=== PATIENT | male | born 1945 | race Caucasian/White ===

== ENCOUNTER 2017-09-13 06:13 | Inpatient (IN) | payer MEDICARE, BC ==
[~2017-09-13] VITALS: Ht 170.2 cm; Wt 70.6 kg
[~2017-09-13 06:13] MED LIST: ECASA81 PO; LIDOCAINE 1%/EPINEPHrine 1:100,000 SOLN 30 ML VIAL ONE; LISI-519 PO; RANI150T PO
[2017-09-13] MEDS ORDERED: SODIUM CHLORID 0.9% 500 ML IV PRN (06:45)
[2017-09-13] MEDS ORDERED: METOPROLOL TARTRATE 25 MG TAB PO PRN (06:45)
[2017-09-13] MEDS ORDERED: POVIDONE IODINE 5% (ANTISEPSIS KIT) 4 APPLICATIONS EACH NARE PRN (06:45)
[2017-09-13] MEDS ORDERED: LACTATED RINGER'S 1000 ML IV PRN (06:45)
[2017-09-13] MEDS ORDERED: CHLORHEXIDINE GLUCONATE 2 % 1 PACK (2 CLOTHS) TOPICAL PRN (06:45)
[2017-09-13] MEDS ORDERED: ceFAZolin 2 GM PREMIX 50 ML IV SCH (06:45)
[2017-09-13] MEDS ORDERED: BUPIVACAINE/EPINEPHRINE 0.5% PF 30 ML VIAL ONE (07:15)
[2017-09-13 07:46] LABS: BASOPHIL % 0.8 % (0.0-2.0); EOSINOPHIL # 0.1 TH/MM3 (0-0.4); EOSINOPHIL % 2.4 % (0.0-4.0); HEMATOCRIT 38.5 % (39.0-51.0); HEMOGLOBIN 13.4 GM/DL (13.0-17.0); LYMPHOCYTE # 1.3 TH/MM3 (1.0-4.8); MEAN CELL VOLUME 84.7 FL (80.0-100.0); MEAN CORPUSCULAR HEMOGLOBIN 29.4 PG (27.0-34.0); MEAN CORPUSCULAR HGB CONC 34.7 % (32.0-36.0); MEAN PLATELET VOLUME 7.6 FL (7.0-11.0); MONO % 9.2 % (0.0-8.0); MONOCYTE # 0.5 TH/MM3 (0-0.9); NEUT % 60.6 % (16.0-70.0); PLATELET COUNT 202 TH/MM3 (150-450); RED BLOOD COUNT 4.54 MIL/MM3 (4.50-5.90); RED CELL DISTRIBUTION WIDTH 14.1 % (11.6-17.2)
[2017-09-13] MEDS ORDERED: ACETAMINOPHEN 1000 MG/100 ML 100 ML IV ONE (07:49)
[2017-09-13] MEDS ORDERED: BUPIVACAINE LIPOSOME PF 1.3% 20 ML VIAL ONE (09:31)
[2017-09-13] MEDS ORDERED: SODIUM CHLORIDE 0.9% 20 ML VIAL ONE (09:32)
[2017-09-13] MEDS ORDERED: KETOROLAC TROMETHAMINE 30 MG/ML (IVP) VIAL IVP PRN (11:00)
[2017-09-13] MEDS ORDERED: NALOXONE HCL 0.4 MG/ML AMP IV PUSH PRN (11:00)
[2017-09-13] MEDS ORDERED: Post-op Orders (for Pharmacy) XX ONE (11:00)
[2017-09-13] MEDS ORDERED: ACETAMINOPHEN/HYDROcodone 325 MG/5 MG TAB PO PRN ×2 (11:00)
[2017-09-13] MEDS ORDERED: diphenhydrAMINE HCL 25 MG CAP PO PRN (11:00)
[2017-09-13] MEDS ORDERED: ONDANSETRON HCL 4 MG/2 ML VIAL IV PUSH PRN (11:00)
[2017-09-13] MEDS ORDERED: DO NOT ADM ANY ANTICOAGULANT DRUGS PRN (11:05)
[2017-09-13] MEDS ORDERED: *morphine SULFATE 4 MG/ML PERIprocedure ONLY ONE ×3 (11:13→11:41)
[2017-09-13] MEDS ORDERED: MIDAZOLAM HCL 2 MG/2 ML VIAL ONE (11:17)
[2017-09-13] MEDS: D5-NS + KCL 20 MEQ INJ 1,000 ML IV SCH ×2 (11:35→20:41)
[2017-09-13] MEDS: MORPHINE SULFATE 30 MG/30 ML PCA IV SCH (11:35)
[2017-09-13] MEDS ORDERED: HYDROmorphone HCL PF 2 MG/ML VIAL ONE (11:59)
[2017-09-13] MEDS ORDERED: PROPOFOL 200 MG/20 ML AMP IV ONE (12:00)
[2017-09-13] MEDS ORDERED: ePHEDrine/NS 25 MG/5 ML SYRINGE IV ONE (12:00)
[2017-09-13] MEDS ORDERED: NORMOSOL R INJ 2,000 ML IV ONE (12:00)
[2017-09-13] MEDS ORDERED: KETOROLAC TROMETHAMINE 30 MG/ML (IVP) VIAL IV PUSH ONE (12:00)
[2017-09-13] MEDS ORDERED: GLYCOPYRROLATE 1 MG/5 ML SYRINGE IV PUSH ONE (12:00)
[2017-09-13] MEDS ORDERED: NEOSTIGMINE 5 MG/5 ML SYRINGE IV PUSH ONE (12:00)
[2017-09-13] MEDS ORDERED: ROCURONIUM INJ 50 MG/5 ML SYRINGE IV PUSH ONE (12:00)
[2017-09-13] MEDS ORDERED: LIDOCAINE HCL 1% PF 5 ML SYRINGE OTHER ONE (12:00)
[2017-09-13] MEDS ORDERED: DEXAMETHASONE SOD PHOS 4 MG/ML VIAL IV ONE (12:00)
[2017-09-13] MEDS ORDERED: ONDANSETRON HCL 4 MG/2 ML VIAL IV ONE (12:00)
[2017-09-13] MEDS: PCA - TOTAL MG MORPHINE DELIVERED PER SHIFT SCH ×2 (14:00→20:40)
--- NOTE | 2017-09-13 14:46 | EKG ---
Date Performed: 09/13/2017 Time Performed: 06:49:37 PTAGE: 72 years EKG: Sinus rhythm NORMAL ECG PREVIOUS TRACING : 09/12/1999 09.15 Since the prior tracing, there has been no significant leo DOCTOR: Adeel Damian Interpretating Date/Time 09/13/2017 14:38:02
[2017-09-13 15:00] VITALS: O2SAT 98
[2017-09-13 16:00] VITALS: BP 109/58; PULSE 77; RESP 19; TEMP 97.7; O2SAT 98
[2017-09-13 20:00] VITALS: BP 116/61; PULSE 64; RESP 20; O2SAT 98
[2017-09-13 20:09] VITALS: O2SAT 98
[2017-09-13] MEDS: DOCUSATE SODIUM 100 MG CAP PO SCH (20:40)
[2017-09-13] MEDS: FAMOTIDINE 20 MG TAB PO SCH (20:40)
[2017-09-14] VITALS: BP 114/58; PULSE 89; RESP 18; TEMP 96.1; O2SAT 95
[2017-09-14] MEDS: D5-NS + KCL 20 MEQ INJ 1,000 ML IV SCH ×3 (03:35→20:37)
[2017-09-14] MEDS: MORPHINE SULFATE 30 MG/30 ML PCA IV SCH ×2 (03:38→20:32)
[2017-09-14 04:00] VITALS: BP 123/65; PULSE 69; RESP 20; TEMP 96.7; O2SAT 96
[2017-09-14] MEDS: PCA - TOTAL MG MORPHINE DELIVERED PER SHIFT SCH ×3 (06:00→20:35)
[2017-09-14 08:00] VITALS: BP 123/65; PULSE 71; RESP 19; TEMP 97.8; O2SAT 95
[2017-09-14] MEDS: LISINOPRIL 5 MG TAB PO SCH (08:05)
[2017-09-14] MEDS: DOCUSATE SODIUM 100 MG CAP PO SCH ×2 (08:06→20:35)
[2017-09-14] MEDS: ASPIRIN EC 81 MG TABEC PO SCH (08:06)
[2017-09-14] MEDS: FAMOTIDINE 20 MG TAB PO SCH ×2 (08:06→20:35)
--- NOTE | 2017-09-14 10:05 | MP ---
cc: BRENNAN CRISOSTOMO M.D. 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 PROCEDURE PERFORMED 1. Exploratory laparotomy with lysis of adhesions. 2. Abdominal wall reconstruction with component separation and ventral incisional hernia repair with mesh. 3. Removal of foreign body, previous mesh. SURGEON Brennan Crisostomo MD ANESTHESIA General endotracheal TELEGRAPH DISPATCHER Gustavo Jaime MD ANESTHESIA General endotracheal COMPLICATIONS None INDICATIONS FOR THE PROCEDURE Mr. Monterroso is a very pleasant 72-year-old patient who underwent exploratory laparotomy, colostomy and subsequent colostomy takedown by Dr. Curry. The patient developed multiple ventral incisional hernias. Dr. Curry repaired his upper midline incisional hernia with the mesh. He then developed additional hernias below this, as well as a stomal hernia in the left lower quadrant. He sought second opinion. The patient was seen and evaluated. Because he had multiple midline incisional hernias as well as stomal hernia in the left lower quadrant, I recommended an open abdominal wall reconstruction with component separation and mesh repair. The patient was agreeable. DETAILS OF THE PROCEDURE The patient was identified, brought to the operating room, placed supine on the operating room table. After adequate general endotracheal anesthesia was achieved, the abdomen was prepped and draped in standard surgical fashion. The previous incision was anesthetized. The previous incision was widely excised using sharp and electrocautery dissection. Dissection proceeded down into the subcutaneous tissue to the a hernia defect which was opened. A finger was then placed in the abdominal cavity without difficulty. The entire midline incision was then opened. The patient was found have multiple ventral incisional hernias with basically [place] cheese of the abdominal wall. This was opened widely along the patient's previous incision. The omental adhesions were taken down off of the incision. The transverse colon was adherent to the patient's previous mesh which was placed in the upper midline. This was carefully taken down with sharp dissection. Previous mesh was then excised with electrocautery Bovie and discarded. The omentum was freed up completely from the abdominal wall circumferentially. Small bowel was briefly inspected. There were no abnormalities and no obvious adhesions. Attention was now directed to the abdominal wall reconstruction. Rectus muscles were identified bilaterally. The anterior and posterior fascia was then . Peritoneum and posterior fascia was dissected back off of the rectus muscle out as far laterally as the transversus abdominis. This was accomplished on both sides. Once the posterior fascia and peritoneum was mobilized completely, it was closed primarily with a #1 PDS continuous running fashion. Previous ostomy site was identified. The posterior fascia was then closed with 3-0 Vicryl suture. We had complete coverage of the entire small bowel. Prior to closure, we had mobilized the omentum, placed it over the small bowel and placed Seprafilm on top of it. Once the first layer was closed, attention was directed to the mesh repair. A piece of polypropylene mesh was brought in a measured out to be about 15 x 30 cm. This was cut to fashion the entire abdominal wall. The mesh was secured superiorly along the posterior fascia and inferiorly along the posterior fascia using a 2-0 PDS suture. Once we did this, the mass was then circumferentially sewn down to the posterior fascia and peritoneum using the 2-0 PDS suture. Mesh was under no significant tension, laid flat and smooth with broad coverage of the posterior fascia in all directions. Attention was now directed to the anterior repair. The anterior fascia was then mobilized off the rectus muscle in order to achieve a primary closure. Primary closure was again accomplished using a #1 PDS in continuous running fashion from above and below. The wound was copiously irrigated with normal saline solution prior to closure. The midline and subcutaneous fat was then reapproximated with a 3-0 Vicryl suture. Skin was closed with a 4-0 Monocryl. Sterile dressings were applied. The patient was awakened and brought to recovery in stable condition. MD GREG Jara/MYRON /10:57 AM /9:48 AM
--- NOTE | 2017-09-14 11:39 | HHI.PR ---
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
[2017-09-14 12:00] VITALS: BP 125/63; PULSE 80; RESP 19; TEMP 97.4; O2SAT 95
[2017-09-14 16:00] VITALS: BP 119/62; PULSE 64; RESP 19; TEMP 97.1; O2SAT 95
[2017-09-14 20:00] VITALS: BP 127/60; PULSE 91; RESP 21; TEMP 99.2; O2SAT 92
[2017-09-15] VITALS (8 sets, daily range): BP systolic 118–145; BP diastolic 58–66; PULSE 82–96; RESP 17–20; TEMP 97.3–100.5; O2SAT 90–94
[2017-09-15] MEDS: PCA - TOTAL MG MORPHINE DELIVERED PER SHIFT SCH ×4 (06:00→21:44)
[2017-09-15] MEDS: LISINOPRIL 5 MG TAB PO SCH (10:24)
[2017-09-15] MEDS: DOCUSATE SODIUM 100 MG CAP PO SCH (10:24)
[2017-09-15] MEDS: ASPIRIN EC 81 MG TABEC PO SCH (10:24)
[2017-09-15] MEDS: FAMOTIDINE 20 MG TAB PO SCH ×2 (10:25→21:44)
--- NOTE | 2017-09-15 11:03 | HHI.PR ---
Subjective Subjective Notes no acute issues, tolerating clears, some burping no gas, incisional pain Objective Vitals/I&O Vital Signs Date Time Temp Pulse Resp B/P (MAP) Pulse Ox O2 Delivery O2 Flow Rate FiO2 09/15/17 08:00 99.0 96 17 121/60 (80) 90 09/13/17 20:09 Nasal Cannula 2.00 Cardiovascular: Regular Lungs: Clear Abdomen: Other (soft incisional tenderness, shukri good sxn) A/P Assessment and Plan POD 1 . Exploratory laparotomy with lysis of adhesions. 2. Abdominal wall reconstruction with component separation and ventral incisional hernia repair with mesh. 3. Removal of foreign body, previous mesh. PLAN Advance to fulls- instructed pt to go slow keep eligibility services representative one more day oob is dvt ppx binder José Luis Farias MD Sep 15, 2017 11:03
[2017-09-15] MEDS: DOCUSATE SODIUM 50 MG/SENNA 8.6 MG TAB PO SCH ×2 (11:31→21:44)
[2017-09-15] MEDS: D5-NS + KCL 20 MEQ INJ 1,000 ML IV SCH (13:49)
[2017-09-15] MEDS: ENOXAPARIN SODIUM 40 MG/0.4 ML SYRINGE SQ SCH (18:44)
[2017-09-15] MEDS: MORPHINE SULFATE 30 MG/30 ML PCA IV SCH (18:50)
[2017-09-16] VITALS (7 sets, daily range): BP systolic 135–156; BP diastolic 66–83; PULSE 74–95; RESP 17–21; TEMP 96.9–97.8; O2SAT 92–95
[2017-09-16] MEDS: D5-NS + KCL 20 MEQ INJ 1,000 ML IV SCH ×2 (03:03→16:17)
[2017-09-16] MEDS: PCA - TOTAL MG MORPHINE DELIVERED PER SHIFT SCH ×3 (05:27→19:55)
[2017-09-16] MEDS: LISINOPRIL 5 MG TAB PO SCH (09:50)
[2017-09-16] MEDS: ASPIRIN EC 81 MG TABEC PO SCH (09:50)
[2017-09-16] MEDS: DOCUSATE SODIUM 50 MG/SENNA 8.6 MG TAB PO SCH ×2 (09:50→19:54)
[2017-09-16] MEDS: FAMOTIDINE 20 MG TAB PO SCH ×2 (09:50→19:54)
--- NOTE | 2017-09-16 11:04 | HHI.PR ---
Subjective Subjective Notes Pain control better today; [employer]PER[employer] adequate for pain control No flatus or BM yet, tolerating full liquids well. Objective Vitals/I&O Vital Signs Date Time Temp Pulse Resp B/P (MAP) Pulse Ox O2 Delivery O2 Flow Rate FiO2 09/16/17 08:46 93 Nasal Cannula 2.00 09/16/17 08:00 97.8 84 17 135/71 (92) Abdomen: Post-op tenderness Narrative Exam CODY dressing dry and intact A/P Assessment and Plan POD #2 abdominal wall reconstruction -Continue full liquids for now -[employer] SUPERVISOR for pain control; continue for today -IS - only pulling approx. 1000ml Rickey Aaron MD Sep 16, 2017 11:04
[2017-09-16] MEDS: MORPHINE SULFATE 30 MG/30 ML PCA IV SCH (15:50)
[2017-09-16] MEDS: ENOXAPARIN SODIUM 40 MG/0.4 ML SYRINGE SQ SCH (18:18)
[2017-09-17] VITALS (7 sets, daily range): BP systolic 142–148; BP diastolic 76–89; PULSE 88–107; RESP 17–20; TEMP 95.6–98; O2SAT 90–95
[2017-09-17] MEDS: D5-NS + KCL 20 MEQ INJ 1,000 ML IV SCH (03:53)
[2017-09-17] MEDS: PCA - TOTAL MG MORPHINE DELIVERED PER SHIFT SCH (03:54)
[2017-09-17] MEDS ORDERED: POLYETHYLENE GLYCOL 17 GM PKG PO ONE (09:00)
[2017-09-17] MEDS ORDERED: MAGNESIUM HYDROXIDE SUSP 30 ML CUP PO ONE (09:00)
[2017-09-17] MEDS: DOCUSATE SODIUM 50 MG/SENNA 8.6 MG TAB PO SCH ×2 (09:17→21:44)
[2017-09-17] MEDS: LISINOPRIL 5 MG TAB PO SCH (09:17)
[2017-09-17] MEDS: ASPIRIN EC 81 MG TABEC PO SCH (09:17)
[2017-09-17] MEDS: FAMOTIDINE 20 MG TAB PO SCH ×2 (09:17→21:44)
--- NOTE | 2017-09-17 12:41 | HHI.PR ---
Subjective Subjective Notes Up to chair Reports +flatus; no BM Doesn't like the food and asked if his can bring him lunch Objective Vitals/I&O Vital Signs Date Time Temp Pulse Resp B/P (MAP) Pulse Ox O2 Delivery O2 Flow Rate FiO2 09/17/17 12:00 98.0 88 18 148/89 (108) 92 09/16/17 08:46 Nasal Cannula 2.00 Cardiovascular: Regular Lungs: Clear Abdomen: Other (CODY in place with good seal; abdominal binder in place; non tender; mildly distended ) Extremities: Other (mild BUE edema ) Narrative Exam + scrotal edema A/P Assessment and Plan 72 year old male POD4 abdominal wall reconstruction -Full liquids -Okay for family to bring food in -DC IVF -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 I reviewed and agree with the findings presented. I attest that I had a [id number] encounter with the patient on the same day, and personally performed and documented my assessment and findings in the medical record. covering for Dr. Winslow stable postop exam, incision c/d/i pain controlled tolerating PO ambulating Manasa Bonilla/Obstetrics Gynecology Md AJ Sep 17, 2017 12:40 Lazaro Ornelas MD Sep 18, 2017 10:59
[2017-09-17] MEDS: ENOXAPARIN SODIUM 40 MG/0.4 ML SYRINGE SQ SCH (18:24)
[2017-09-18] VITALS: BP 134/71; PULSE 87; RESP 18; TEMP 97.9; O2SAT 92
[2017-09-18 08:00] VITALS: BP 155/78; PULSE 84; RESP 19; TEMP 96.3; O2SAT 94
[2017-09-18] MEDS: FAMOTIDINE 20 MG TAB PO SCH (08:16)
[2017-09-18] MEDS: ASPIRIN EC 81 MG TABEC PO SCH (08:17)
[2017-09-18] MEDS: DOCUSATE SODIUM 50 MG/SENNA 8.6 MG TAB PO SCH (08:17)
[2017-09-18] MEDS: LISINOPRIL 5 MG TAB PO SCH (08:17)
[2017-09-18] MEDS ORDERED: MAGNESIUM HYDROXIDE SUSP 30 ML CUP PO ONE (08:30)
--- NOTE | 2017-09-18 10:43 | HHI.DS ---
Discharge Summary Admission Date Sep 13, 2017 at 10:55 Discharge Date: Sep 18, 2017 Admitting Diagnosis Brief History 72 year old male s/p abdominal wall reconstruction PE at Discharge Alert and awake Cardio: RRR Resp: CTAB Abd: CODY removed; Steri strips in place; abdomen soft + scrotal edema Hospital Course This is a 72 year old make s/p abdominal wall reconstruction. The patient was able to tolerate a regular diet. The patient's pain was controlled using oral pain medications. He was able to ambulate independent. He will follow up in the office on . He was provided a prescription for pain medication. Pt Condition on Discharge: Good Discharge Disposition: Discharge Home Discharge Instructions DIET: Follow Instructions for: As Tolerated, No Restrictions Activities you can perform: See Additionl Instruction Other Activity Instructions: Okay to shower Pat incision dry Wear abdominal binder up and out of bed Manasa Bonilla/First Nati ROCHA Sep 18, 2017 10:43
== END 2017-09-18 10:50 | disposition home or self-care (01) | DRG 336 ==
LOC: HSDC 06:13 → HSDI 10:55 → N07A 13:34
PROVIDERS: ADMIT Surgery Trauma Surgery; ATTEND Surgery Trauma Surgery
PROC: 0DNU0ZZ Release Omentum, Open Approach (ICD-10-PCS; 2017-09-13)
PROC: 0WCG0ZZ Extirpation of Matter from Peritoneal Cavity, Open Approach (ICD-10-PCS; 2017-09-13)
PROC: 0WUF0JZ Supplement Abdominal Wall with Synthetic Substitute, Open Approach (ICD-10-PCS; principal; 2017-09-13 07:56)
DX: K43.2 Incisional hernia without obstruction or gangrene (principal); K94.09 Other complications of colostomy; I10 Essential (primary) hypertension; K66.0 Peritoneal adhesions (postprocedural) (postinfection); E78.5 Hyperlipidemia, unspecified; K21.9 Gastro-esophageal reflux disease without esophagitis; Z85.46 Personal history of malignant neoplasm of prostate; Z87.891 Personal history of nicotine dependence
CPT/HCPCS: 76937; 85025; 93005; 94150; C1765; C1781; C9290; J0131; J0690; J1100; J1170; J1650; J1885; J2250; J2270; J2405; J2710; J3010; J3480; J7120